=== PATIENT | male | born 1970 | race Caucasian/White ===

== ENCOUNTER 2020-05-08 14:26 | Emergency (ER) | payer MEDICAID ==
[~2020-05-08] VITALS: Ht 175.3 cm; Wt 104.5 kg
[2020-05-08 15:02] LABS: BASOPHILS # (AUTO) 0.1 X10'3 (0-0.2); BASOPHILS % (AUTO) 0.7 % (0-1); EOSINOPHILS % (AUTO) 0.5 % (0-6); HEMATOCRIT 48.7 % (42.0-52.0); HEMOGLOBIN 16.5 g/dl (14.0-17.9); LYMPHOCYTES # (AUTO) 2.6 X10'3 (1.1-4.8); LYMPHOCYTES % (AUTO) 30.7 % (21-51); MEAN CORPUSCULAR HEMOGLOBIN 31.2 PG (27.0-31.0); MEAN CORPUSCULAR HGB CONC 33.8 g/dL (33.0-36.5); MEAN CORPUSCULAR VOLUME 92.4 FL (78-98); MEAN PLATELET VOLUME 8.3 FL (7.4-10.4); MONOCYTES # (AUTO) 0.7 X10'3 (0-0.9); MONOCYTES % (AUTO) 8.3 % (2-12); NEUTROPHILS # (AUTO) 5.2 X10'3 (1.8-7.7); NEUTROPHILS % (AUTO) 59.8 % (42-75); PLATELET COUNT 232 X10'3 (140-440); RED BLOOD COUNT 5.27 X10'6 (4.70-6.10); WHITE BLOOD COUNT 8.6 X10'3 (4.5-11.0)
[2020-05-08 15:16] LABS: ALANINE AMINOTRANSFERASE 47 U/L (12-78); ALBUMIN 4.1 G/DL (3.4-5.0); ALBUMIN/GLOBULIN RATIO 1.1 (1.1-1.5); ALKALINE PHOSPHATASE 103 IU/L (46-116); ANION GAP 9 (8-16); ASPARTATE AMINO TRANSFERASE 19 U/L (10-37); BILIRUBIN,TOTAL 0.5 MG/DL (0.1-1.0); BLOOD UREA NITROGEN 16 MG/DL (7-18); BUN/CREATININE RATIO 15.5 (5.4-32.0); CALCIUM 9.1 MG/DL (8.5-10.1); CHLORIDE 107 MMOL/L (99-107); CREATININE 1.03 MG/DL (0.60-1.10); GLUCOSE 151 MG/DL (70-104); POTASSIUM 4.5 MMOL/L (3.5-5.1); SODIUM 142 MMOL/L (135-145); TOTAL CARBON DIOXIDE 25.7 MMOL/L (24-32); TOTAL PROTEIN 7.7 G/DL (6.4-8.2); eGFR 77 ML/MIN
[2020-05-08 15:31] VITALS: BP 193/97
== END 2020-05-08 15:39 | disposition home or self-care (01) ==
LOC: ER 14:26
DX: R55 Syncope and collapse (principal); R42 Dizziness and giddiness
CPT/HCPCS: 36415; 80053; 84484; 85025; 93005; 99284

== ENCOUNTER 2020-05-15 10:04 | Day surgery (SDC) | payer MEDICAID ==
[2020-05-15] VITALS (9 sets, daily range): BP systolic 109–134; BP diastolic 65–91
[~2020-05-15] VITALS: Ht 175.3 cm; Wt 104.3 kg
[~2020-05-15 10:04] MED LIST: ceFAZolin 2gm in dextrose, iso 50 ML IV ONE; famotidine 20mg tablet PO ONE; ringers solution, lacted 1,000 ML IV SCH; vancomycin 1,500 MG in NS 300ml IV soln IV ONE
[2020-05-15] MEDS ORDERED: BUPIVAcaine/PF 2.5 mg/ml (0.25%) 30ml vial ONE ×2 (10:51→12:57)
[2020-05-15] MEDS ORDERED: triamcinolone acetonide 40mg/ml inj ONE ×2 (10:51→12:57)
[2020-05-15] MEDS ORDERED: NAPR-996 PO (11:10)
[2020-05-15] MEDS ORDERED: MONT10TA26 PO (11:10)
[2020-05-15] MEDS ORDERED: DULO20CA18 PO (11:10)
[2020-05-15] MEDS ORDERED: ACET-2778 PO (11:10)
[2020-05-15] MEDS ORDERED: ondansetron/PF 4mg/2ml inj IV PRN (12:55)
[2020-05-15] MEDS ORDERED: HYDROmorphone inj. 0.5 MG/0.5 ML DISP.SYRIN IV PRN ×2 (12:55)
[2020-05-15] MEDS ORDERED: morphine 4 MG/ML inj SYRINge IV PRN (12:55)
[2020-05-15] MEDS ORDERED: ringers solution, lacted 1,000 ML IV SCH (12:55)
[2020-05-15] MEDS ORDERED: proCHLORperazine 10 MG/2 ml inj IV PRN (12:55)
[2020-05-15] MEDS ORDERED: meperidine/PF 25mg/ml syringe IV PRN (12:55)
[2020-05-15] MEDS ORDERED: acetaminophen 1,000mg/100ml IV 100 ML IV PRN (12:55)
[2020-05-15] MEDS ORDERED: morphine 2 MG/ML inj. syringe IV PRN (12:55)
[2020-05-15] MEDS ORDERED: sevoflurane 250ml liquid IH ONE (13:02)
[2020-05-15] MEDS ORDERED: fentaNYL/PF 50MCG/1 ML 2ML syringe ONE (13:10)
[2020-05-15] MEDS ORDERED: midazolam 2 mg/2 ml injection ONE (13:13)
[2020-05-15] MEDS ORDERED: ondansetron/PF 4mg/2ml inj ONE (13:19)
[2020-05-15] MEDS ORDERED: dexamethasone sod phosphate 4mg/ml inj. ONE (13:19)
[2020-05-15] MEDS ORDERED: propofol inj 20 ML IV ONE (13:19)
[2020-05-15] MEDS ORDERED: LIDOcaine 2% (20mg/ml) 5ml vial ONE (13:19)
[2020-05-15] MEDS ORDERED: ePHEDrine 50MG/ML INJ. ONE (13:59)
--- NOTE | 2020-05-15 14:10 | NUR ---
Received from OR via COURT , accompanied by Anesthesiologist KENNY and report given by Anesthesiolgist. PATIENT WITH 20G PIV IN LEFT UE RUNNING LR AT 100. DENIES PAIN AT THIS TIME. LEFTKNEE BIAS WRAP PRESENT AND IS CDI. VSS. GATCHED FOOT OF BED UPON ARRIVAL . + POSTERIOR TIBILAIS, + CAP REFILL. 10L MASK ON WITH 97% SATURATIONS. Addendum: 05/15/20 at 1422 by Slava Bueno RN, RN Amended: Links added.
--- NOTE | 2020-05-15 15:30 | NUR ---
I HAVE REVIEWED D/C INSTRUCTIONS WITH PATIENT AND FAMILY AND THEY HAVE VERBALIZED UNDERSTANDING. PATIENT D/C HOME WITH ALL BELONGINGS AND FAMILY GAVE TRANSPORT HOME. VOIDED PRIOR TO LEAVING. VSS. DENIES PAIN- SIG OTHER DROVE PATIENT HOME. Addendum: 05/15/20 at 1603 by Slava Bueno RN, RN Amended: Links added.
== END 2020-05-15 15:30 | disposition home or self-care (01) ==
LOC: PAS 10:04
PROVIDERS: ATTEND Orthopaedic Surgery
DX: S83.242A Other tear of medial meniscus, current injury, left knee, initial encounter (principal); S83.272A Complex tear of lateral meniscus, current injury, left knee, initial encounter; M17.0 Bilateral primary osteoarthritis of knee; F41.9 Anxiety disorder, unspecified; F32.9 Major depressive disorder, single episode, unspecified; E78.5 Hyperlipidemia, unspecified; E66.8 Other obesity; Z68.38 Body mass index [BMI] 38.0-38.9, adult; Z72.89 Other problems related to lifestyle; Z87.891 Personal history of nicotine dependence; Z79.899 Other long term (current) drug therapy; Z11.59 Encounter for screening for other viral diseases; X58.XXXA Exposure to other specified factors, initial encounter; Y93.89 Activity, other specified; Y92.89 Other specified places as the place of occurrence of the external cause; Y99.8 Other external cause status
CPT/HCPCS: 29873; 29879; 29880; 36415; 82948; J1100; J2001; J2250; J2405; J2704; J3010; J3301; J3370; J3490; J7040; U0003; A4215; A4618; A6250; A6449; J7120

== ENCOUNTER 2020-05-25 07:50 | Emergency (ER) | payer MEDICAID ==
[~2020-05-25] VITALS: Ht 175.3 cm; Wt 100.0 kg
[~2020-05-25 07:50] MED LIST changes: +ACET-2778 PO; +DULO20CA18 PO; +MONT10TA26 PO; +NAPR-996 PO; -ceFAZolin 2gm in dextrose, iso 50 ML IV ONE; -famotidine 20mg tablet PO ONE; -ringers solution, lacted 1,000 ML IV SCH; -vancomycin 1,500 MG in NS 300ml IV soln IV ONE
[2020-05-25 12:06] VITALS: BP 149/89
== END 2020-05-25 12:08 | disposition home or self-care (01) ==
LOC: ER 07:51
DX: M25.572 Pain in left ankle and joints of left foot (principal); M25.472 Effusion, left ankle; G89.18 Other acute postprocedural pain; Z79.899 Other long term (current) drug therapy
CPT/HCPCS: 73610; 93971; 99284

== ENCOUNTER 2021-05-09 10:54 | Emergency (ER) | payer MEDICAID ==
[~2021-05-09] VITALS: Ht 175.3 cm; Wt 107.0 kg
[~2021-05-09 10:54] MED LIST changes: -MONT10TA26 PO; +MONT10TA32 PO
[2021-05-09] MEDS ORDERED: normal saline 1000ML IV soln IV ONE (11:10)
[2021-05-09 11:41] VITALS: BP 128/92
[2021-05-09 11:49] LABS: BASOPHILS % (AUTO) 0.6 % (0-1); EOSINOPHILS # (AUTO) 0.1 X10'3 (0-0.9); EOSINOPHILS % (AUTO) 1.8 % (0-6); HEMATOCRIT 44.4 % (42.0-52.0); HEMOGLOBIN 15.3 g/dl (14.0-17.9); LYMPHOCYTES % (AUTO) 24.9 % (21-51); MEAN CORPUSCULAR HEMOGLOBIN 31.8 PG (27.0-31.0); MEAN CORPUSCULAR HGB CONC 34.5 g/dL (33.0-36.5); MEAN CORPUSCULAR VOLUME 92.1 FL (78-98); MEAN PLATELET VOLUME 8.3 FL (7.4-10.4); MONOCYTES # (AUTO) 0.6 X10'3 (0-0.9); MONOCYTES % (AUTO) 7.9 % (2-12); NEUTROPHILS # (AUTO) 5.2 X10'3 (1.8-7.7); NEUTROPHILS % (AUTO) 64.8 % (42-75); PLATELET COUNT 219 X10'3 (140-440); RED BLOOD COUNT 4.82 X10'6 (4.70-6.10); RED CELL DISTRIBUTION WIDTH 13.2 % (11.5-14.5); WHITE BLOOD COUNT 8.1 X10'3 (4.5-11.0)
[2021-05-09 11:52] LABS: ALANINE AMINOTRANSFERASE 37 U/L (12-78); ALBUMIN 3.9 G/DL (3.4-5.0); ALBUMIN/GLOBULIN RATIO 1.3 (1.1-1.5); ALKALINE PHOSPHATASE 85 IU/L (46-116); ANION GAP 8 (8-16); ASPARTATE AMINO TRANSFERASE 21 U/L (10-37); BILIRUBIN,TOTAL 0.5 MG/DL (0.1-1.0); BLOOD UREA NITROGEN 18 MG/DL (7-18); BUN/CREATININE RATIO 16.4 (5.4-32.0); CALCIUM 8.8 MG/DL (8.5-10.1); CHLORIDE 105 MMOL/L (99-107); GLUCOSE 124 MG/DL (70-104); MAGNESIUM 1.8 MG/DL (1.5-2.4); POTASSIUM 4.3 MMOL/L (3.5-5.1); SODIUM 139 MMOL/L (135-145); TOTAL CARBON DIOXIDE 26.1 MMOL/L (24-32); TOTAL PROTEIN 6.9 G/DL (6.4-8.2); eGFR 71 ML/MIN
[2021-05-09 12:42] LABS: CLARITY,URINE CLEAR (Clear); COLOR,URINE YELLOW (Yellow); GLUCOSE, URINE 100 mg/dl (Neg); KETONES,URINE NEGATIVE (Neg); LEUKOCYTE ESTERASE ,URINE NEGATIVE (Neg); NITRITES, URINE NEGATIVE (Neg); OCCULT BLOOD,URINE NEGATIVE (Neg); PROTEIN,URINE TRACE mg/dl (Neg); UROBILINOGEN,URINE 0.2 E.U/dL (0.2-1.0)
[2021-05-09 12:44] LABS: UA COLLECTION TYPE CLN CATCH MIDSTREAM
[2021-05-09 12:54] LABS: MUCUS STRANDS FEW /LPF (Neg); SQUAMOUS EPITHELIAL CELL,UR NONE SEEN /LPF (FEW)
[2021-05-09 12:55] LABS: BACTERIA,URINE FEW /HPF (Neg); RBC,URINE NONE SEEN /HPF (0-2); WBC,URINE 0-4 /HPF (0-4)
== END 2021-05-09 12:43 | disposition home or self-care (01) ==
LOC: ER 10:55
DX: E86.0 Dehydration (principal); R53.1 Weakness; R73.03 Prediabetes
CPT/HCPCS: 36415; 71045; 80053; 81001; 83735; 84145; 85025; 93005; 96360; 99285; J7030

== ENCOUNTER 2021-05-22 16:00 | Emergency (ER) | payer MEDICAID ==
[~2021-05-22] VITALS: Ht 175.3 cm; Wt 102.3 kg
[2021-05-22 16:05] VITALS: BP 134/83
[2021-05-22] MEDS ORDERED: SULF1TAB49 PO (16:40)
[2021-05-22] MEDS ORDERED: CEPH-585 PO (16:40)
== END 2021-05-22 17:12 | disposition home or self-care (01) ==
LOC: ER 16:35
DX: L02.01 Cutaneous abscess of face (principal); R68.84 Jaw pain; Z79.2 Long term (current) use of antibiotics; Z79.899 Other long term (current) drug therapy
CPT/HCPCS: 99283

== ENCOUNTER 2021-06-12 05:48 | Emergency (ER) | payer MEDICAID ==
[~2021-06-12] VITALS: Ht 175.3 cm; Wt 104.5 kg
[~2021-06-12 05:48] MED LIST changes: +CEPH-585 PO; +SULF1TAB49 PO
[2021-06-12 05:51] VITALS: BP 114/76
[2021-06-12] MEDS ORDERED: METH4TAB81 PO (09:03)
[2021-06-12] MEDS ORDERED: CYCL-1 PO (09:03)
== END 2021-06-12 09:42 | disposition home or self-care (01) ==
LOC: ER 05:49
DX: M54.5 Low back pain (principal); W19.XXXA Unspecified fall, initial encounter; Y93.89 Activity, other specified; Y92.89 Other specified places as the place of occurrence of the external cause; Y99.8 Other external cause status
CPT/HCPCS: 99283

== ENCOUNTER 2021-10-15 07:25 | Day surgery (SDC) | payer MEDICAID ==
[2021-10-08 11:04] LABS: BASOPHILS % (AUTO) 0.4 % (0-1); EOSINOPHILS # (AUTO) 0.1 X10'3 (0-0.9); EOSINOPHILS % (AUTO) 1.7 % (0-6); LYMPHOCYTES # (AUTO) 2.2 X10'3 (1.1-4.8); LYMPHOCYTES % (AUTO) 25.2 % (21-51); MEAN CORPUSCULAR HEMOGLOBIN 31.9 PG (27.0-31.0); MEAN CORPUSCULAR HGB CONC 34.4 g/dL (33.0-36.5); MEAN CORPUSCULAR VOLUME 92.6 FL (78-98); MEAN PLATELET VOLUME 8.1 FL (7.4-10.4); MONOCYTES # (AUTO) 0.8 X10'3 (0-0.9); MONOCYTES % (AUTO) 8.8 % (2-12); NEUTROPHILS # (AUTO) 5.6 X10'3 (1.8-7.7); NEUTROPHILS % (AUTO) 63.9 % (42-75); PRE OP HEMATOCRIT 45.3 % (42.0-52.0); PRE OP HEMOGLOBIN 15.6 g/dL (14.0-17.9); PRE OP PLATELET COUNT 238 X10'3 (140-440); RED CELL DISTRIBUTION WIDTH 13.5 % (11.5-14.5)
[2021-10-08 11:23] LABS: ALBUMIN/GLOBULIN RATIO 1.1 (1.1-1.5); ALKALINE PHOSPHATASE 99 IU/L (46-116); BLOOD UREA NITROGEN 14 MG/DL (7-18); BUN/CREATININE RATIO 11.7 (5.4-32.0); CALCIUM 9.1 MG/DL (8.5-10.1); CHLORIDE 104 MMOL/L (99-107); PRE OP ALT 46 U/L (30-65); PRE OP ANION GAP 8 (8-16); PRE OP AST 21 U/L (10-37); PRE OP BILIRUB, TOTAL 0.5 MG/DL (0.0-1.0); PRE OP POTASSIUM 4.2 MMOL/L (3.4-5.1); PRE OP SODIUM 139 MMOL/L (135-145); TOTAL CARBON DIOXIDE 27.2 MMOL/L (24-32); TOTAL PROTEIN 7.5 G/DL (6.4-8.2); eGFR 64 ML/MIN
[2021-10-08 11:29] LABS: PRE OP GLUCOSE 200 MG/DL (70-104)
[~2021-10-15] VITALS: Ht 175.3 cm; Wt 107.0 kg
[2021-10-15] VITALS (15 sets, daily range): BP systolic 117–131; BP diastolic 84–95
[~2021-10-15 07:25] MED LIST changes: -CEPH-585 PO; +CYCL-394 PO; +GABAPENTIN PO; +LISI2.5T14 PO; +LORA10TA7 PO; +METF-1203 PO; -MONT10TA32 PO; +OMEP-50 PO; +PRAV20TA4 PO; -SULF1TAB49 PO; +cefazolin/dext.iso 2gm/50ml IV ONE; +famotidine 20mg tablet PO ONE; +ringers solution, lacted 1,000 ML IV SCH
[2021-10-15] MEDS ORDERED: BUPIVAcaine/PF 2.5 mg/ml (0.25%) 30ml vial ONE (09:13)
[2021-10-15] MEDS ORDERED: triamcinolone acetonide 40mg/ml inj ONE (09:14)
[2021-10-15] MEDS ORDERED: sevoflurane 250ml liquid IH ONE (09:18)
[2021-10-15] MEDS ORDERED: ringers solution, lacted 1,000 ML IV SCH (09:20)
[2021-10-15] MEDS ORDERED: hydrALAZINE 20mg/ml inj. IV PRN (09:20)
[2021-10-15] MEDS ORDERED: morphine 4 MG/ML inj SYRINge IV PRN (09:20)
[2021-10-15] MEDS ORDERED: morphine 2 MG/ML inj. syringe IV PRN (09:20)
[2021-10-15] MEDS ORDERED: meperidine/PF 25mg/ml syringe IV PRN (09:20)
[2021-10-15] MEDS ORDERED: proCHLORperazine 10 MG/2 ml inj IV PRN (09:20)
[2021-10-15] MEDS ORDERED: acetaminophen 1,000mg/100ml IV 100 ML IV PRN (09:20)
[2021-10-15] MEDS ORDERED: ondansetron/PF 4mg/2ml inj IV PRN (09:20)
[2021-10-15] MEDS ORDERED: fentaNYL/PF 50MCG/1 ML 2ML syringe ONE (09:20)
[2021-10-15] MEDS ORDERED: HYDROmorphone/PF 0.2 MG/ML SYRINGE IV PRN ×2 (09:20)
[2021-10-15] MEDS ORDERED: labetalol 20mg/4ml (5mg/ml) syringe IV PRN (09:20)
[2021-10-15] MEDS ORDERED: ondansetron/PF 4mg/2ml inj ONE (09:42)
[2021-10-15] MEDS ORDERED: propofol inj 20 ML IV ONE (09:42)
[2021-10-15] MEDS ORDERED: midazolam 1 mg/ML 2ml injection ONE (09:42)
[2021-10-15] MEDS ORDERED: dexamethasone sod phosphate 4mg/ml inj. ONE (09:42)
[2021-10-15] MEDS ORDERED: LIDOcaine 2% (20mg/ml) 5ml vial ONE (09:42)
--- NOTE | 2021-10-15 10:50 | NUR ---
Received from OR via , accompanied by Anesthesiologist DR COX and report given by Anesthesiolgist. MD PRESENTS WITH 20G LEFT HAND, LEFT KNEE DRESSING DRY AND INTACT, VSS Addendum: 10/15/21 at 1058 by Nati Bueno RN, RN Amended: Links added.
--- NOTE | 2021-10-15 13:00 | NUR ---
. I HAVE REVIEWED D/C INSTRUCTIONS WITH PATIENT and they have verbalized understanding patient d/c home with all belongings and family gave transport home. Addendum: 10/15/21 at 1317 by Nati Bueno RN, RN Amended: Links added.
== END 2021-10-15 13:00 | disposition home or self-care (01) ==
LOC: PAS 07:25 → EDSTATUS 14:15
PROVIDERS: ATTEND Orthopaedic Surgery
DX: S83.232A Complex tear of medial meniscus, current injury, left knee, initial encounter (principal); S83.272A Complex tear of lateral meniscus, current injury, left knee, initial encounter; M94.262 Chondromalacia, left knee; F32.9 Major depressive disorder, single episode, unspecified; E78.5 Hyperlipidemia, unspecified; E66.8 Other obesity; Z68.35 Body mass index [BMI] 35.0-35.9, adult; M17.0 Bilateral primary osteoarthritis of knee; M16.0 Bilateral primary osteoarthritis of hip; I10 Essential (primary) hypertension; E11.9 Type 2 diabetes mellitus without complications; F41.9 Anxiety disorder, unspecified; K21.9 Gastro-esophageal reflux disease without esophagitis; G89.29 Other chronic pain; G47.33 Obstructive sleep apnea (adult) (pediatric); Z79.899 Other long term (current) drug therapy; Z87.891 Personal history of nicotine dependence; Z72.89 Other problems related to lifestyle; Z98.890 Other specified postprocedural states; Z20.822 Contact with and (suspected) exposure to COVID-19; X58.XXXA Exposure to other specified factors, initial encounter; Y93.89 Activity, other specified; Y92.89 Other specified places as the place of occurrence of the external cause; Y99.8 Other external cause status
CPT/HCPCS: 29873; 29879; 29880; 36415; 80053; 82948; 85025; 93005; J0690; J1100; J1170; J2250; J2405; J2704; J3010; J3301; J3490; J7120; U0003; U0005; Z7506; Z7508; Z7512; A4215; A4618; A6250; A6449; A7000

== ENCOUNTER 2022-10-17 18:03 | Emergency (ER) | payer MEDICAID ==
[~2022-10-17] VITALS: Ht 175.3 cm; Wt 104.0 kg
[~2022-10-17 18:03] MED LIST changes: -OMEP-50 PO; +OMEP20CA16 PO; -cefazolin/dext.iso 2gm/50ml IV ONE; -famotidine 20mg tablet PO ONE; -ringers solution, lacted 1,000 ML IV SCH
[2022-10-17 18:11] VITALS: BP 159/104
[2022-10-17] MEDS ORDERED: acetaminophen 325mg tablet PO STA (22:34)
[2022-10-17] MEDS ORDERED: normal saline 1000ml 1,000 ML IV SCH (22:35)
[2022-10-17] MEDS ORDERED: normal saline 1000ML IV soln IV ONE (22:35)
== END 2022-10-17 23:53 | disposition left against medical advice (07) ==
LOC: ER 18:04
DX: R05.9 Cough, unspecified (principal); Z53.21 Procedure and treatment not carried out due to patient leaving prior to being seen by health care provider

== ENCOUNTER 2024-09-19 13:21 | Outpatient (CLI) | payer MEDICARE, MEDICAID | END 2024-09-19 23:59 | disposition home or self-care (01) | LOC: MRI 13:21 | PROVIDERS: ATTEND Orthopaedic Surgery | DX: S83.232A Complex tear of medial meniscus, current injury, left knee, initial encounter (principal); S83.272A Complex tear of lateral meniscus, current injury, left knee, initial encounter; M25.462 Effusion, left knee; X58.XXXA Exposure to other specified factors, initial encounter; Y93.89 Activity, other specified; Y92.89 Other specified places as the place of occurrence of the external cause; Y99.8 Other external cause status | CPT/HCPCS: 73721 ==

== ENCOUNTER 2025-03-27 09:30 | Outpatient (CLI) | payer MEDICARE, MEDICAID ==
[~2025-03-27 09:30] MED LIST changes: +NAPR-1168 PO; -NAPR-996 PO
--- NOTE | 2025-03-27 12:15 | RADIOLOGY REPORT ---
INDICATION: CHRONIC LOW BACK PAIN COMPARISON: None TECHNIQUE: 4 views of the lumbar spine were obtained. FINDINGS: The lumbar vertebral alignment is normal. The intervertebral disc spaces are well-maintained. No significant facet arthropathy is noted. No acute fracture, vertebral compression deformity or aggressive osseous lesions. The paravertebral soft tissues are grossly unremarkable. IMPRESSION: No acute fracture or subluxation.
--- NOTE | 2025-03-27 14:04 | VASCULAR REPORT ---
PROCEDURE: [facility] 03/27/2025 09:43 AM INDICATION: Dizziness. COMPARISON: None TECHNIQUE: Real-time grayscale and color Doppler images of the neck arteries were obtained with spect ral analysis performed. FINDINGS: RIGHT: No significant atherosclerotic plaque identified in the carotid. Normal spectral waveforms are seen. ICA peak systolic velocity: 60 cm/s ICA end-diastolic velocity: 25 cm/s ICA/CCA ratios: 0.625 LEFT: No significant atherosclerotic plaque identified in the carotid. Normal spectral waveforms are seen. ICA peak systolic velocity: 66 cm/s ICA end-diastolic velocity: 25 cm/s ICA/CCA ratios: 0.68 VERTEBRAL ARTERIES: Normal antegrade flow is seen bilaterally. Normal spectral waveforms. IMPRESSION: 1. No hemodynamically significant carotid artery stenosis identified bilaterally. Reference: Radiology 2003; [id number] Normal ICA PSV is <125 cm/sec and no plaque or intimal thickening is visible sonographically addition al criteria include ICA/CCA PSV ratio <2.0 and ICA EDV <40 cm/sec <50% ICA stenosis ICA PSV is <125 cm/sec and plaque or intimal thickening is visible sonographically additional criteria include ICA/CCA PSV ratio <2.0 and ICA EDV <40 cm/sec 50-69% ICA stenosis ICA PSV is 125-230 cm/sec and plaque is visible sonographically additional criter ia include ICA/CCA PSV ratio of 2.0-4.0 and ICA EDV of 40-100 cm/sec 70% ICA stenosis but less than near occlusion ICA PSV is >230 cm/sec and visible plaque and luminal narrowing are seen at hagen-scale and color Doppler ultrasound (the higher the Doppler parameters lie above the threshold of 230 cm/sec, the greater the likelihood of severe disease) additional criteria include ICA/CCA PSV ratio >4 and ICA EDV >100 cm/sec
== END 2025-03-27 23:59 | disposition home or self-care (01) ==
LOC: VAS 09:30
PROVIDERS: ATTEND Nurse Practitioner Family
DX: M54.50 Low back pain, unspecified (principal); R42 Dizziness and giddiness
CPT/HCPCS: 72110; 93880

== ENCOUNTER → 2025-03-28 | Outpatient (CLI) | payer MEDICARE, MEDICAID ==
[~2025-03-28] MED LIST changes: +GADOTERATE MEGLUMINE 7.5 MMOL/15 ML VIAL IV ONE; +LIDOcaine 1% 30ml preserv. free vial ONE; +LIDOcaine 1%/PF 5ML 10 MG/ML VIAL ONE; +iohexol 300 MG/1 ML 50ml polymer ONE
--- NOTE | 2025-03-28 08:19 | RADIOLOGY REPORT ---
CLINICAL HISTORY: Complex tear of medial meniscus. COMPARISON: MR MRI LOWER EXTREMITY LEFT on DOS: 09/19/24 TECHNIQUE: Multisequence multiplanar MR arthrogram images of the left knee were obtained without cont rast. FINDINGS: Cruciate ligaments: ACL and PCL are intact and otherwise unremarkable. Extensor mechanism: Mild tendinosis of the proximal patellar tendon. Distal quadriceps mechanism is i ntact and otherwise unremarkable. Edema in Hoffa's fat pad, likely due to the arthrogram injection. Collateral ligaments: Medial and lateral collateral ligaments are intact and otherwise unremarkable. Menisci: There is blunting of the free edge of the body and posterior horn of the lateral meniscus, unchanged compared to the prior exam, may be sequela of postsurgical changes, free edge fraying, or f ree edge tear. 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 Blunting of the free edge of the of the medial meniscus , may be sequela of postsurgical changes, Free edge fraying, or free edge tear, unchanged. Previously seen signal abnormality in the posterior horn/ body junction of the medial meniscus with questionabl e extension to the tibial articular surface is not seen on this exam, may be due to differences in te chnique /sequences between the prior MRI exam and today's MR arthrogram. Cartilage: No focal chondral defect or significant chondromalacia. Bones: No acute fracture or focal marrow contusion Joint fluid: No significant joint effusion. No synovitis or loose bodies. Other: No other significant findings. IMPRESSION: 1. Suspected small vertical flap tear at the junction of the posterior horn and posterior root attach ment of the medial meniscus, involving zone 3. 2. Blunting of the free edge of the body and posterior horn of the lateral meniscus and body of the m edial meniscus, most likely sequelae of postsurgical changes, although free edge fraying or free edge tears could also have a similar appearance in the appropriate clinical setting. 3. Previously seen signal abnormality in the posterior horn / body junction of the medial meniscus wi th questionable extension to the tibial articular surface is not visualized on the current examinatio n, may be due to differences in technique between exams. 4. Additional findings as detailed above.
--- NOTE | 2025-03-28 08:22 | RADIOLOGY REPORT ---
ANGIO ARTHROGRAM (A) Date: 03/28/2025 07:17 AM Clinical History: COMPLEX TEAR OF MEDIAL MENSC, CURRENT INJURY, L KNEE, INIT Comparison: None Procedure: Verbal and written informed consent were obtained from the patient for the procedure of left knee flu oroscopically guided arthrogram, after the procedure, risks, and benefits of the procedure were expla ined to the patient. Risks include bleeding, infection, reaction to injected medications, and damage to surrounding anatomic structures. The patient's questions were answered. The patient's most rece nt medical history was reviewed. A time out was performed to verify the patient's name, date of , and correct location of the pro cedure, prior to initiation of the procedure. The patient was placed supine on the fluoroscopic table and the area overlying the left knee was pre pped and draped in the usual sterile fashion. The patient tolerated the procedure well. There were no immediate complications. Home-care instruct ions were reviewed with the patient prior to the patient's discharge from the fluoroscopy suite. The patient verbally affirmed understanding of these instructions. Impression: Technically successful fluoroscopically guided LEFT KNEE arthrogram. The patient was transported to MRI for further imaging at the completion of the procedure. Procedure performed by Dr. Miller
== END | disposition home or self-care (01) ==
LOC: RAD 06:02
PROVIDERS: ATTEND Orthopaedic Surgery
DX: S83.232A Complex tear of medial meniscus, current injury, left knee, initial encounter (principal); S83.272A Complex tear of lateral meniscus, current injury, left knee, initial encounter; X58.XXXA Exposure to other specified factors, initial encounter; Y93.89 Activity, other specified; Y92.89 Other specified places as the place of occurrence of the external cause; Y99.8 Other external cause status
CPT/HCPCS: 27369; 73722; 77002; A9575; J2003; J3490; Q9967